=== PATIENT | male | born 1975 | race Two or more races ===

== ENCOUNTER → 2018-09-14 | Outpatient (CLI) | payer OTHER | END | disposition home or self-care (01) | LOC: MSC 14:15 | PROVIDERS: ATTEND Anesthesiology | DX: N50.89 Other specified disorders of the male genital organs (principal); G57.92 Unspecified mononeuropathy of left lower limb; M79.2 Neuralgia and neuritis, unspecified; Z98.890 Other specified postprocedural states; Z79.899 Other long term (current) drug therapy ==